=== PATIENT | male | born 1935 | race Caucasian/White ===

== ENCOUNTER 2017-01-27 09:56 | Day surgery (SDC) | payer MEDICARE, OTHER ==
[~2017-01-27] VITALS: Ht 185.4 cm; Wt 100.0 kg
[~2017-01-27 09:56] MED LIST: ALPR0.254 PO; ASPI-973 PO; CALCIUM+MAG+ZINC PO; CAR8A PO; CYAN500 PO; FINA5TAB9 PO; GLUC-120 PO; INSU100I SC; INSU100I SQ; INSU100I13 SUBQ; Lactated Ringer's 1,000 ML IV ONE; MULT-1018 PO; OMEG-38 PO; ONDA-53 PO
[2017-01-27] MEDS ORDERED: EPHEDrine/NS 5 mg/mL 5 mL Syringe ONE (09:57)
[2017-01-27] MEDS ORDERED: fentaNYL-PF 50 mCg/mL 2 mL Inj ONE (09:57)
[2017-01-27] MEDS ORDERED: Phenylephrine 10,000 mCg/mL Inj ONE (09:57)
[2017-01-27 10:27] VITALS: BP 143/80; PULSE 78; RESP 14; O2SAT 97
[2017-01-27 12:32] VITALS: BP 88/55; PULSE 76; RESP 16; O2SAT 94
--- NOTE | 2017-01-27 12:36 | PCM.HPANE ---
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) Current Bedside Blood Glucose: 143 MRSA MRSA: No Medications Blood Thinner: Aspirin Last Dose Blood Thinner: Jan 26, 2017 Reported Medications Alprazolam 0.25 Mg Tablet0.125 Mg PO TID PRN For Anxiety Ref 0 09/17/16 Doxazosin (Cardura)8 Mg Tablet8 Mg PO HS Ref 0 09/17/16 Ondansetron 4 Mg Tablet4 Mg PO DAILY 09/17/16 Cyanocobalamin (Vitamin B12)500 Mcg Tablet1,000 Mcg PO DAILY 09/17/16 [place]-3/Dha/Epa/Fish Oil (Fish Oil 1,000 mg Softgel)1 Each Capsule1 Each PO DAILY 09/17/16 [Calcium+Mag+Zinc] No Conflict Check Po Daily 09/17/16 Gluc 2Kcl/Chondr/Elida Hy/Hy AC (Glucosamine & Chondroitin Cap)1 Each Capsule1 Each PO DAILY 09/17/16 Multivitamin (Multi Vitamin Daily)1 Each Tablet1 Each PO DAILY Ref 0 09/17/16 Finasteride 5 Mg Tablet5 Mg PO DAILY 30 Days Ref 0 03/03/16 Insulin Aspart (NovoLOG U-100 Pen)100 Unit/Ml Insuln.pen11 Units SC dinner 03/03/16 Insulin Aspart (NovoLOG U-100 Pen)100 Unit/Ml Insuln.pen13 Sq Noon 01/30/16 Insulin Glargine (Lantus U100 Solostar Insulin Pen)100 Unit/1 Ml Insuln.pen15 Unit SUBQ AM Ref 0 01/30/16 Aspirin 81 Mg Cntele52 Mg PO DAILY Ref 0 01/30/16 History HEENT History: Positive for:: Dysphagia (sometimes) Hearing Problem (hearing aids out) Hx of Heart Problems?: No Hx of Respiratory Problem?: Yes Respiratory History: Positive for:: Cough (at time productive ) Dyspnea Other Resp Pertinent History: lung CA with history of colapsed lung due to bx Hx Neurologic Problems?: No Neurological History: Positive for:: CVA (TIA) Hx of GI Problems?: Yes Gastrointestinal History: Positive for:: Gastroesphageal Reflux (occ) Liver Disease (enyzmes elevated) Other GI Pertinent History: acute kidney failure Hx of Problems?: Yes Hx Musculoskeletal Problems?: No Hx of Psycho/Social Problems?: Yes Psycho Social History: Positive for:: Anxiety Hx Depression Hx Surgeries?: No Hx Any Other Health Problems?: Yes Other History: Positive for:: Cancer (Lung) History Blood Transfusions: Positive for:: Blood Transfusions (This visit) Hx Diabetes: Yes (Insulin dependant)Bedside Blood Glucose: 143 Hx Alcohol Use: No Smoking Status: Former Smoker Stop/Bang Treated for Sleep Apnea?: No Do You Have a CPAP Machine?: No S-Snoring: Do You Snore Loudly: Yes T-Tired: feel tired, fatigued: No O-Obsered: Observed not breath: Yes P-Blood Pressure: treated: No B- Body Mass Index > 35 kg/m2: No A- Age over 50: Yes N- Neck Large Circumference: No G- Gender Male: Yes ALONDRA Total Score: 4 Risk Assessment Category Category 1A: Patient has history of documented sleep apnea, and HAS NOT received any narcotic, sedative or anesthesia administration during this stay. Category 1B: Patient has history of documented sleep apnea, and HAS received any narcotic , sedative or anesthesia administration during this stay Category 2: Patient has SUSPECTED Obstructive Sleep Apnea, and HAS received any narcotic , sedative or anesthesia administration during this stay. Category 3: Patient has SUSPECTED Obstructive Sleep Apnea and HAS NOT received narcotic, sedative or anesthesia administration during this stay. Category 4: Outpatient in Procedural Areas with known sleep apnea or who screen positive for High Risk via the STOP/BANG questionnaire. Exam Exam Vital Signs Vital Signs Date Time Temp Pulse Resp B/P Pulse Ox O2 Delivery O2 Flow Rate FiO2 01/27/17 10:27 78 14 143/80 97 Room Air General Appearance: Alert, Oriented X3, Cooperative, No Acute Distress HEENT/AIRWAY: MP 2 Lungs: Clear to Auscultation Heart: Exam Unremarkable Meds/Labs/Diagnostics Admission Meds Current Medications Lactated Ringer's (Lr) 1,000 ml @ 10 mls/hr Q24H ONCE IV Last administered on 01/27/17t 11:13; Start 01/27/17 at 06:00; Stop 01/28/17 at 05:59 Bedside Blood Glucose: 143 Plan Impression Patient chart reviewed, patient interviewed and anesthestic plan with risks, benefits, and alternatives discussed, and informed consent obtained. ASA Physical Status: ASA1 Plus Emergency Anesthetic Plan: MAC Bene/Risks/Altern/Consents: Yes HP Complete Prior to Induction: Yes Trevor Lino MD Jan 27, 2017 12:36
--- NOTE | 2017-01-27 12:37 | PCM.ANEP2 ---
Post Anesthesia Evaluation ASA/CMS Post Anesthesia VS in Patient's Normal Range?: Yes Resp Stable; Airway Patent?: Yes CV Function & Hydration Stable: Yes Mental Status Recovered?: Yes Pain control Satisfactory?: Yes N/V Control Satisfactory?: Yes Trevor Lino MD Jan 27, 2017 12:36
[2017-01-27 12:43] VITALS: BP 94/55; PULSE 69; RESP 16; O2SAT 96
[2017-01-27 12:53] VITALS: BP 107/62; PULSE 64; RESP 16; O2SAT 96
--- NOTE | 2017-01-30 15:30 | ENDO ---
[address] [address] ENDOSCOPY PROCEDURE PATIENT: MARCIA LAZARO : 1935 MR#: [id number] ADMIT: 01/27/2017 JOB ID: [id number] DATE: 01/27/2017 PROCEDURE: Esophagogastroduodenoscopy, esophageal ultrasound. The patient's ASA classification, Mallampati score and medications as per anesthesia records. INSTRUMENTS USED: GIF H 180 J as well as a GF UCT 180 linear echoendoscope. PROCEDURE DETAILS: After informed consent was obtained, the patient was brought into the GI suite, where he was placed on oxygen via nasal cannula and monitored with continuous pulse oximeter, telemetry and blood pressure monitoring. A time-out was performed. Then, he was placed in the left lateral decubitus position and a bite block was placed. Medications were then administered for sedation. The standard EGD scope was inserted through the bite block and advanced without difficulty to the second portion of the duodenum. FINDINGS: 1. Normal appearing duodenal bulb, first and second portion. 2. Normal appearing pylorus. 3. In the antrum there was a small clean-based ulcer measuring approximately 3-4 mm. Biopsies were not obtained. 4. Retroflexed views in the gastric body revealed a normal-appearing cardia and fundus. 5. Normal appearing GE junction with a regular Z-line at 42 cm. At 40 cm, there was a 3-4 mm nodule that was well-circumscribed. Biopsies were not obtained. The remainder of the esophagus was otherwise unremarkable. Next, the linear echo endoscope was then introduced through the bite block and advanced without difficulty to the second portion of the duodenum. Linear echo endoscopic imaging demonstrated the followin. There was a large hypoechoic lesion seen at the proximal portion of the body of the pancreas. The cyst appeared to be septated and measured approximately 2.3 cm x 1.1 cm. However, the cyst appeared to be larger than this as we were not able to capture all areas of the cyst with a single image. Using a TenKod 25-gauge needle, the cyst was aspirated and completely collapsed. Following collapse no mass lesion was appreciated in this area. The fluid was obtained, was placed in red path container for analysis and sent. This cyst did not appear to be communicating with the main pancreatic duct. 2. The remainder of the pancreas appeared slightly hyperechoic suggestive of fatty pancreas. 3. The splenic artery and splenic vein were identified with flow. 4. The common bile duct appeared to be normal in course and caliber. 5. The portal vein was identified and appeared to have flow. 6. The examined portions of the left lobe of the liver were unremarkable. 7. The adrenal gland was identified and appeared normal. 8. The celiac axis was identified and appeared normal. 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 RECOMMENDATIONS: 1. Await cyst fluid analysis. 2. Followup in GI clinic. 3. Followup with Surgery. 4. Follow up with Oncology. COMPLICATIONS: None. ESTIMATED BLOOD LOSS: Less than 5 mL. MTDD
== END 2017-01-27 23:59 | disposition home or self-care (01) ==
LOC: END 09:56
PROVIDERS: ATTEND Internal Medicine Gastroenterology
DX: K86.2 Cyst of pancreas (principal); E11.22 Type 2 diabetes mellitus with diabetic chronic kidney disease; N17.9 Acute kidney failure, unspecified; R06.00 Dyspnea, unspecified; F41.9 Anxiety disorder, unspecified; K21.9 Gastro-esophageal reflux disease without esophagitis; F32.9 Major depressive disorder, single episode, unspecified; Z86.73 Personal history of transient ischemic attack (TIA), and cerebral infarction without residual deficits; Z79.82 Long term (current) use of aspirin; Z85.118 Personal history of other malignant neoplasm of bronchus and lung; Z92.21 Personal history of antineoplastic chemotherapy; Z92.3 Personal history of irradiation; Z79.4 Long term (current) use of insulin; Z87.891 Personal history of nicotine dependence
CPT/HCPCS: 43232; J2250; J2370; J3010; J7120